=== PATIENT | female | born 1995 ===

== ENCOUNTER 2017-12-17 10:29 | Emergency (ER) | payer OTHER ==
[~2017-12-17] VITALS: Ht 172.7 cm; Wt 64.8 kg
[2017-12-17 10:33] VITALS: TEMP 36.5; Ht 172.7 cm; Wt 64.8 kg
[2017-12-17] MEDS ORDERED: ACETAMINOPHEN 500 MG TAB PO STA (11:11)
[2017-12-17] MEDS ORDERED: SODIUM CHLORIDE 0.9% 1000ML 1,000 ML IV STA (11:11)
[2017-12-17] MEDS ORDERED: ONDANSETRON INJ 2 MG/ML 2 ML VIAL IV STA (11:11)
[2017-12-17] MEDS ORDERED: KETOROLAC TROMETHAMINE 30 MG/ML VIAL IV STA (11:11)
[2017-12-17] MEDS ORDERED: GI COCKTAIL PO STA (11:11)
[2017-12-17] MEDS ORDERED: FAMOTIDINE 20 MG TAB PO ONE (11:15)
[2017-12-17 11:19] LABS: BASO % 0.4 %; BASO ABS # 0.03 K/uL (0-0.2); EOS % 3.5 %; EOS ABS # 0.25 K/uL (0-0.5); HEMOGLOBIN 13.5 g/dL (12.0-16.0); IG# 0.01 K/uL (0.00-0.02); LYMPH % 40.1 %; LYMPH ABS # 2.87 K/uL (1.2-3.4); MEAN CELL VOLUME 84.8 fL (80-100); MEAN CORPUSCULAR HEMOGLOBIN 29.3 pg (25-34); MEAN CORPUSCULAR HGB CONC 34.6 g/dl (32-36); MEAN PLATELET VOLUME 9.9 fL (7.4-10.4); MONO % 7.4 %; MONO ABS # 0.53 K/uL (0.11-0.59); NEUT % 48.5 %; NEUT ABS # 3.47 K/uL (1.4-6.5); PLATELET COUNT 222 K/uL (130-400); RED CELL DISTRIBUTION WIDTH CV 12.9 % (11.5-14.5); RED CELL DISTRIBUTION WIDTH SD 39.3 fL (36.4-46.3); WHITE BLOOD COUNT 7.16 K/uL (4.8-10.8)
[2017-12-17] MEDS ORDERED: LIDOCAINE HCL 2% VISC SOLN 20 ML UDC ONE (11:24)
[2017-12-17] MEDS ORDERED: ALUMINUM/MAGNESIUM SUSP 30 ML UDC ONE (11:24)
[2017-12-17 11:27] LABS: ALBUMIN 4.2 gm/dl (3.4-5.0); CALCIUM 8.9 mg/dl (8.5-10.1); CREATININE 0.96 mg/dl (0.60-1.20); POTASSIUM 3.5 mmol/L (3.5-5.1)
[2017-12-17 11:37] LABS: TOTAL PROTEIN 7.4 gm/dl (6.4-8.2)
[2017-12-17] MEDS ORDERED: ONDA4TAB65 PO (12:31)
--- NOTE | 2017-12-17 12:32 | EMERGENCY ROOM VISIT NOTE ---
History Report prepared by Froyibliam: Ramsey Chavira Under the Supervision of: Dr. Giancarlo Ibarra M.D. First contact with patient: 10:37 Chief Complaint: ABDOMINAL PAIN Stated Complaint: EXTREME STOMACH PAINS Nursing Triage Summary: Pt reports constant mid to left sided abd pain x 1 week, pain waxes/wanes. Nausea. Normal BM's. Denies urinary s/sx. Denies previous hx of similar pain. Denies back pain. History of Present Illness The patient is a 22 year old [place] female who presents to the ED with a cc of intermittent left sided abdominal pain beginning one week ago. Pain has now become constant. Positive nausea. Negative urinary symptoms, diarrhea, back pain. No history of similar pain. Bowel movements have been normal, most recent was last night. Pain improved with sitting up straight, or curling up into position. Traveled to [facility] a few months ago. LNMP was last week. No known sick contacts. No abnormal foods. No chance of . No alcohol, drugs, or tobacco use. Pain is unchanged with food. Source of History: patient Onset: One week ago Position: abdomen (left side) Timing: intermittent Modifying Factors (Relieving): other (sitting up straight, or curling up into position) Associated Symptoms: + nausea, No back pain, No diarrhea, No urinary symptoms Review of Systems See HPI for pertinent positives and negatives. A total of ten systems were reviewed and were otherwise negative. Past Medical & Surgical Medical Problems: (1) No Known Active Medical Problems Family History No pertinent family history stated. Social History Smoking Status: Never Smoker Alcohol Use: none Occupation Status: [employer] student Current/Historical Medications No Active Prescriptions or Reported Meds Allergies Coded Allergies: No Known Allergies (Unverified , 12/17/17) Physical Exam Vital Signs Date Time Temp Pulse Resp B/P (MAP) Pulse Ox O2 Delivery O2 Flow Rate FiO2 12/17/17 11:28 54 14 112/84 100 Room Air 12/17/17 10:33 36.5 70 18 117/64 97 Room Air Physical Exam GENERAL: Awake, alert, well-appearing, NAD. Wearing glasses. HENT: Normocephalic, atraumatic. EYES: Normal conjunctiva. Sclera non-icteric. NECK: Supple. No nuchal rigidity. FROM. RESPIRATORY: CTAB, no rhonchi, wheezing, crackles CARDIAC: RRR, no MRG ABDOMEN: Soft, BS+. Epigastric discomfort. Mild RUQ discomfort. Negative Brown' s. Negative obturators. Negative psoas. Non-surgical abdomen. MSK: No chest wall TTP, no LE edema NEURO: GCS 15, CN 2-12 intact, moves all 4s on command SKIN: No rash or jaundice noted. Medical Decision & Procedures Laboratory Results 12/17/17 10:54 Red Blood Count 4.60, Mean Corpuscular Volume 84.8, Mean Corpuscular Hemoglobin 29.3, Mean Corpuscular Hemoglobin Concent 34.6, Mean Platelet Volume 9.9, Neutrophils (%) (Auto) 48.5, Lymphocytes (%) (Auto) 40.1, Monocytes (%) (Auto) 7.4, Eosinophils (%) (Auto) 3.5, Basophils (%) (Auto) 0.4, Neutrophils # (Auto) 3.47, Lymphocytes # (Auto) 2.87, Monocytes # (Auto) 0.53, Eosinophils # (Auto) 0.25, Basophils # (Auto) 0.03 12/17/17 10:54 Test 12/17/17 10:54 12/17/17 11:17 White Blood Count 7.16 K/uL (4.8-10.8) Red Blood Count 4.60 M/uL (4.2-5.4) Hemoglobin 13.5 g/dL (12.0-16.0) Hematocrit 39.0 % (37-47) Mean Corpuscular Volume 84.8 fL (80-100) Mean Corpuscular Hemoglobin 29.3 pg (25-34) Mean Corpuscular Hemoglobin Concent 34.6 g/dl (32-36) Platelet Count 222 K/uL (130-400) Mean Platelet Volume 9.9 fL (7.4-10.4) Neutrophils (%) (Auto) 48.5 % Lymphocytes (%) (Auto) 40.1 % Monocytes (%) (Auto) 7.4 % Eosinophils (%) (Auto) 3.5 % Basophils (%) (Auto) 0.4 % Neutrophils # (Auto) 3.47 K/uL (1.4-6.5) Lymphocytes # (Auto) 2.87 K/uL (1.2-3.4) Monocytes # (Auto) 0.53 K/uL (0.11-0.59) Eosinophils # (Auto) 0.25 K/uL (0-0.5) Basophils # (Auto) 0.03 K/uL (0-0.2) RDW Standard Deviation 39.3 fL (36.4-46.3) RDW Coefficient of Variation 12.9 % (11.5-14.5) Immature Granulocyte % (Auto) 0.1 % Immature Granulocyte # (Auto) 0.01 K/uL (0.00-0.02) Anion Gap 6.0 mmol/L (3-11) Est Creatinine Clear Calc Drug Dose 94.3 ml/min Estimated GFR () 98.7 Estimated GFR (Non- 85.1 BUN/Creatinine Ratio 12.2 (10-20) Calcium Level 8.9 mg/dl (8.5-10.1) Total Bilirubin 0.9 mg/dl (0.2-1) Direct Bilirubin 0.2 mg/dl (0-0.2) Aspartate Amino Transf (AST/SGOT) 20 U/L (15-37) Alanine Aminotransferase (ALT/SGPT) 21 U/L (12-78) Alkaline Phosphatase 65 U/L (45-117) Total Protein 7.4 gm/dl (6.4-8.2) Albumin 4.2 gm/dl (3.4-5.0) Lipase 160 U/L (73-393) Urine Color YELLOW Urine Appearance CLEAR (CLEAR) Urine pH 6.5 (4.5-7.5) Urine Specific [place] 1.016 (1.000-1.030) Urine Protein NEG (NEG) Urine Glucose (UA) NEG (NEG) Urine Ketones NEG (NEG) Urine Occult Blood NEG (NEG) Urine Nitrite NEG (NEG) Urine Bilirubin NEG (NEG) Urine Urobilinogen NEG (NEG) Urine Leukocyte Esterase NEG (NEG) Urine Test NEG (NEG) Laboratory results reviewed by me Medications Administered Medications (Trade) Dose Ordered Sig/Surinder Route Start Time Stop Time Status Last Admin Dose Admin Sodium Chloride 1,000 ml @ 999 mls/hr Q1H1M STAT IV 12/17/17 11:11 12/17/17 12:11 DC 12/17/17 11:26 999 MLS/HR Ondansetron HCl (Zofran Inj) 4 mg NOW STAT IV 12/17/17 11:11 3/21/18 11:12 DC 12/17/17 11:26 4 MG Ketorolac Tromethamine (Toradol Inj) 30 mg NOW STAT IV 12/17/17 11:11 12/17/17 11:12 DC 12/17/17 11:27 30 MG Acetaminophen (Tylenol Tab) 1,000 mg NOW STAT PO 12/17/17 11:11 12/17/17 11:12 DC 12/17/17 11:28 1,000 MG Famotidine (Pepcid Tab) 20 mg NOW ONCE PO 12/17/17 11:15 12/17/17 11:16 DC 12/17/17 11:28 20 MG Lidocaine HCl (Viscous Lidocaine 2% Soln) 20 ml STK-MED ONCE .ROUTE 12/17/17 11:24 12/17/17 11:25 DC 12/17/17 11:27 20 ML Al Hydroxide/Mg Hydroxide (Maalox Susp) 30 ml STK-MED ONCE .ROUTE 12/17/17 11:24 12/17/17 11:25 DC 12/17/17 11:27 30 ML ED Course 1100: The patient was evaluated in room C5. A complete history and physical exam was performed. 1220: I reevaluated the patient. Discussed results and discharge instructions: she verbalized understanding and agreement. The patient is ready for discharge. Medical Decision The patient is a 22 year old [place] female who presents to the ED with a cc of intermittent left sided abdominal pain beginning one week ago. Differential diagnosis: Etiologies such as appendicitis, diverticulitis, PUD, biliary pathology, UTI, pancreatitis, obstruction, mesenteric ischemia, aortic pathology, infections, inflammatory bowel disease, renal colic, as well as others were entertained. Nursing notes reviewed. Ancillary studies and prior records reviewed. Patient was seen and evaluated at the bedside. Patient was complaining some mild initially intermittent and now constant epigastric discomfort. Patient does complain of nausea but without vomiting. She has had a recent last menstrual period. Patient denies any recent travel. She did travel to [facility] back in August. Patient denies any lower abdominal pain or any prior surgeries. Patient did have blood work completed and was given medications for symptom control. Patient's blood work is completely unremarkable. Patient has a normal white blood cell count. Normal kidney function. Normal LFTs and lipase. Patient has a negative urinalysis for blood or infection. Patient's urine patency tested negative. Patient was told of these findings. Upon reassessment the patient was feeling much improved. Patient was told to consider a bland diet and to advance her diet as tolerated. Patient was also told she may try taking Pepcid and other [id number]-[id number] medications. Patient was deemed suitable for outpatient follow-up and discharge at this time. Patient was given strict follow-up, discharge, and return precautions. All questions were answered. Patient was deemed suitable for outpatient follow-up at this time. Patient agreed with the plan of care and was safely discharged home. Medication Reconcilliation Current Medication List: was personally reviewed by me Blood Pressure Screening Patient's blood pressure: Normal blood pressure Blood pressure disposition: Did not require urgent referral Impression Primary Impression: Gastritis Additional Impression: Epigastric abdominal pain Scribe Attestation The scribe's documentation has been prepared under my direction and personally reviewed by me in its entirety. I confirm that the note above accurately reflects all work, treatment, procedures, and medical decision making performed by me. Departure Information Dispostion Home / Self-Care Prescriptions Ondansetron Hcl (ZOFRAN) 4 Mg Tab 1 TAB PO Q6H Y for Nausea, #10 TAB 1 Refill Prov: Giancarlo Ibarra M.D. 12/17/17 Referrals No Doctor, Assigned (PCP) [facility] Patient Instructions ED Gastritis, [facility] Additional Instructions Please return to the emergency department if you have worsening or recurrent symptoms not amenable to at-home treatment. Please call for a follow-up appointment with her primary care physician. Please take your medications as prescribed. If you have other concerns and/or complaints please feel free to also call your primary care physician's office or return the ED for further evaluation, management, and treatment. You may take 600 mg Ibuprofen every 6 hours as needed for pain with food for no more than 2 consecutive days. You may take tylenol 1000 mg every 6 hours as needed for pain. You may take motrin and tylenol separately or at the same time. Consider taking Pepcid 20 mg twice daily. You may also consider other over-the- counter medications to help with your discomfort. You have been examined and treated today on an emergency basis only. This is not a substitute for, or an effort to provide, complete comprehensive medical care. It is impossible to recognize and treat all injuries or illnesses in a single emergency department visit. It is therefore important that you follow up closely with [facility], your PCP, and/or your specialist(s). Call as soon as possible for an appointment. Thank you for your time and consideration. I look forward to speaking with you again soon. Please don't hesitate to call us if you have any questions. Problem Qualifiers Primary Impression: Gastritis Gastritis type: unspecified gastritis Chronicity: unspecified Gastritis bleeding: presence of bleeding unspecified Qualified Codes: K29.70 - Gastritis, unspecified, without bleeding
[2017-12-17 12:42] VITALS: BP 109/54; PULSE 58; O2SAT 94
== END 2017-12-17 12:44 | disposition home or self-care (01) ==
LOC: C.EDB 10:31 → C.EDC 12:44
DX: K29.70 Gastritis, unspecified, without bleeding (principal); R10.13 Epigastric pain

== ENCOUNTER 2018-01-18 18:40 | Emergency (ER) | payer OTHER ==
[~2018-01-18] VITALS: Ht 172.7 cm; Wt 64.6 kg
[~2018-01-18 18:40] MED LIST: ONDA4TAB65 PO
[2018-01-18 18:42] VITALS: TEMP 37; Ht 172.7 cm; Wt 64.6 kg
[2018-01-18] MEDS ORDERED: SODIUM CHLORIDE 0.9% 1000ML 1,000 ML IV STA (19:03)
[2018-01-18] MEDS ORDERED: KETOROLAC TROMETHAMINE 30 MG/ML VIAL IV STA (19:05)
--- NOTE | 2018-01-18 19:23 | EMERGENCY ROOM VISIT NOTE ---
ED Visit Note First contact with patient: 18:47 CHIEF COMPLAINT: Sore throat HISTORY OF PRESENTING ILLNESS: This is a 22-year-old female who presents to the emergency department with complaint of sore throat past 2 weeks. She states that this has been getting worse over the past few days. She states that the pain has been constant, aching and sharp, worse with eating and drinking, better with rest, 8/10. She tried Tylenol a few days ago and has been using cough drops, but she states this is not helping. She has not taken any medications for the pain today. Yesterday she noticed a painful lump on the left side of her neck that has been becoming worse today. She has had some associated chills, but denies any fevers. Denies any voice changes. She has had some associated headaches and nausea off and on. She denies any difficulty swallowing, difficulty breathing, wheezing, chest pain, dizziness or syncope, abdominal pain, nausea or vomiting, diarrhea, urinary symptoms, or unusual rash. She denies any known sick contacts. REVIEW OF SYSTEMS: A complete 10 point review of systems was reviewed with the patient with pertinent positives and negatives as per history of present illness. All else were negative. PAST MEDICAL HISTORY: No significant past medical or surgical history. Up-to- date on immunizations. SOCIAL HISTORY: Lives at home. She is a [employer] student. She denies tobacco use. ALLERGIES: No known allergies. PHYSICAL EXAM: CONSTITUTIONAL: Pleasant and cooperative. No acute distress. Moderately dehydrated, otherwise well appearing and well nourished. HEENT: Normocephalic, atraumatic. Pupils equal, round and reactive to light, EOMI. TMs normal. Pharynx mildly erythematous and edematous, no exudate. No trismus, no uvular deviation. Moist mucous membranes. NECK: Supple, full active range of motion without discomfort. Bilateral anterior cervical adenopathy, left greater than right, tender to palpation. No posterior cervical adenopathy. RESPIRATORY: Clear to auscultation bilaterally with no wheezing, crackles, rhonchi or stridor. Equal expansion bilaterally. CARDIOVASCULAR: Regular rate and rhythm with no murmurs, rubs or gallops. Normal peripheral perfusion. No edema. GASTROINTESTINAL: Soft, nontender, nondistended. No palpable masses or HSM. Bowel sounds present in all quadrants. MUSCULOSKELETAL: Full range of motion of all joints without discomfort. INTEGUMENTARY: No rash or other significant dermatologic conditions noted. NEUROLOGIC: Alert and oriented X 4 with normal affect. Cranial nerves II-XII grossly intact. No focal neurologic deficits noted. Normal strength and sensation in all 4 extremities. Normal speech. Normal gait observed. ED COURSE AND MEDICAL DECISION MAKING: CC: Patient presenting with complaint of sore throat. DIFFERENTIAL DIAGNOSIS: Includes, but not limited to viral pharyngitis, strep pharyngitis, mononucleosis, dehydration, electrolyte abnormalities, peritonsillar abscess, lymphadenopathy, among others. INTERPRETATION OF LABS: Leukocytosis with left shift, no anemia, no significant electrolyte abnormalities, normal renal function. Monospot negative. Rapid strep positive. MEDICATION RECONCILIATION: I attest that I have personally reviewed the patient 's current medication list. INITIAL VITAL SIGNS REVIEW: I reviewed the patient's initial vital signs and interpret them as follows: T: Afebrile; BP: Normotensive; HR: Tachycardic; RR : Within normal limits; Pulse Ox: Within normal limits on room air. Blood pressure screening: The patient was found to have normal blood pressure on screening and does not require follow-up for repeat blood pressure check. SUMMARY: Patient was evaluated at bedside, history and physical exam performed. Patient is alert and oriented, no acute distress, resting, and stretcher. Patient appears moderately dehydrated and is noted to be tachycardic with heart rate in the 120s. She is afebrile. She has mild erythema and edema of the pharynx, but no exudates. No trismus or uvular deviation, I have a low clinical suspicion for peritonsillar abscess. Orders were placed at bedside for labs, rapid strep and Monospot, IV fluids for hydration, IV Toradol for pain. Patient discussed with Dr. García, who agrees with my assessment and plan. Labs reviewed as above, rapid strep POSITIVE. Patient was treated with amoxicillin, first dose in the ED and Rx sent to the pharmacy. Patient reassessed multiple times throughout ED stay, she is feeling better after fluids and Toradol, and she states that her pain is much improved. Her tachycardia is downtrending. She is tolerating oral fluids without difficulty. Patient was updated on all results and plan for discharge, she was encouraged to follow closely with her primary care provider or [facility]. Patient was also given strict return precautions should her symptoms worsen, she verbalized understanding. Patient was discharged home in stable condition and ambulatory. Current/Historical Medications Scheduled Amoxicillin (Amoxil), 500 MG PO BID Scheduled PRN Ondansetron Hcl (Zofran), 1 TAB PO Q6H PRN for Nausea Allergies Coded Allergies: No Known Allergies (Unverified , 12/17/17) Vital Signs Date Time Temp Pulse Resp B/P (MAP) Pulse Ox O2 Delivery O2 Flow Rate FiO2 01/18/18 20:33 111 111/70 98 Room Air 01/18/18 19:24 98 Room Air 01/18/18 18:42 37.0 122 18 119/76 97 Room Air Laboratory Results 01/18/18 19:15 Red Blood Count 4.72, Mean Corpuscular Volume 84.1, Mean Corpuscular Hemoglobin 29.2, Mean Corpuscular Hemoglobin Concent 34.8, Mean Platelet Volume 9.3, Neutrophils (%) (Auto) 84.7, Lymphocytes (%) (Auto) 7.4, Monocytes (%) (Auto) 6.3, Eosinophils (%) (Auto) 1.0, Basophils (%) (Auto) 0.2, Neutrophils # (Auto) 11.29, Lymphocytes # (Auto) 0.99, Monocytes # (Auto) 0.84, Eosinophils # (Auto) 0.13, Basophils # (Auto) 0.02 01/18/18 19:15 Test 01/18/18 19:15 White Blood Count 13.32 K/uL (4.8-10.8) Red Blood Count 4.72 M/uL (4.2-5.4) Hemoglobin 13.8 g/dL (12.0-16.0) Hematocrit 39.7 % (37-47) Mean Corpuscular Volume 84.1 fL (80-100) Mean Corpuscular Hemoglobin 29.2 pg (25-34) Mean Corpuscular Hemoglobin Concent 34.8 g/dl (32-36) Platelet Count 245 K/uL (130-400) Mean Platelet Volume 9.3 fL (7.4-10.4) Neutrophils (%) (Auto) 84.7 % Lymphocytes (%) (Auto) 7.4 % Monocytes (%) (Auto) 6.3 % Eosinophils (%) (Auto) 1.0 % Basophils (%) (Auto) 0.2 % Neutrophils # (Auto) 11.29 K/uL (1.4-6.5) Lymphocytes # (Auto) 0.99 K/uL (1.2-3.4) Monocytes # (Auto) 0.84 K/uL (0.11-0.59) Eosinophils # (Auto) 0.13 K/uL (0-0.5) Basophils # (Auto) 0.02 K/uL (0-0.2) RDW Standard Deviation 38.1 fL (36.4-46.3) RDW Coefficient of Variation 12.4 % (11.5-14.5) Immature Granulocyte % (Auto) 0.4 % Immature Granulocyte # (Auto) 0.05 K/uL (0.00-0.02) Anion Gap 9.0 mmol/L (3-11) Est Creatinine Clear Calc Drug Dose 95.3 ml/min Estimated GFR () 99.9 Estimated GFR (Non- 86.2 BUN/Creatinine Ratio 11.6 (10-20) Calcium Level 8.6 mg/dl (8.5-10.1) Monoscreen NEG (NEG) Date/Time Source Procedure Growth Status 01/18/18 19:00 Throat Group A Streptococcus Screen - Final SPECIMEN POSITIVE FOR GROUP A BETA ST... Complete 01/18/18 19:00 Throat Group A Streptococcus Screen (ROBBIE) - Final Complete Medications Administered Medications (Trade) Dose Ordered Sig/Surinder Route Start Time Stop Time Status Last Admin Dose Admin Sodium Chloride 1,000 ml @ 999 mls/hr Q1H1M STAT IV 01/18/18 19:03 01/18/18 20:03 DC 01/18/18 19:03 999 MLS/HR Ketorolac Tromethamine (Toradol Inj) 15 mg NOW STAT IV 01/18/18 19:05 01/18/18 19:06 DC 01/18/18 19:22 15 MG Amoxicillin (Amoxil Cap) 500 mg NOW STAT PO 01/18/18 19:54 01/18/18 19:56 DC 01/18/18 20:33 500 MG Departure Information Impression Primary Impression: Strep pharyngitis Dispostion Home / Self-Care Condition GOOD Prescriptions Amoxicillin (AMOXIL) 500 Mg Cap 500 MG PO BID for 10 Days, #19 CAP Prov: Paige Esqueda CRNP 01/18/18 Referrals No Doctor, Assigned (PCP) [facility] Patient Instructions ED Strep Pharyngitis Yelena Reyez [facility] Additional Instructions You were seen in the emergency department for your sore throat. The results of your rapid strep screen were found to be POSITIVE. You were prescribed amoxicillin to be taken twice a day for 10 days. This is an antibiotic to treat your strep throat infection. All antibiotics have the potential to cause diarrhea, take a daily probiotic or eat yogurt regularly to help avoid this. Stop this medication and contact a medical provider if you were to develop any significant adverse side effects including: wheezing, shortness of breath, passing out, vomiting, or a diffuse rash. Always take antibiotics as directed and COMPLETE the ENTIRE course regardless of the improvement of your symptoms. For pain and fever control, you can use the following [id number] medicines (if >12 yo): - Regular strength (325mg/tab) Tylenol (acetaminophen) 2 tabs every 4-6 hours as needed. Do not exceed 10 tablets in a 24 hour period. Avoid taking more than 3000 mg of Tylenol per day. This includes any other sources of acetaminophen you may take on a regular basis. - Regular strength (200 mg/tab) Advil (ibuprofen) 3 tabs every 6-8 hours as needed. Do not exceed a dose of 2400 mg per day. - For best results, alternate dosing of Tylenol and Advil every 3-4 hours. In addition to your prescribed medications, you can also use the following home remedies: - Warm salt-water gargles 3 times per day can soothe your throat and help to fight infection. - Warm tea with honey can soothe your throat. [id number]-[id number] Chloraseptic sprays and Cepacol lozenges may also help with your throat pain. Lukewarm fluids are better than very hot or very cold liquids for soothing your throat. Drink plenty of fluids to stay well hydrated. Return to the emergency department if your symptoms persist or worsen over the next 2-3 days despite treatment course outlined above. Return to the emergency department if you develop the following symptoms of: inability to swallow solids , liquids, or drool; excessive wheezing or inability to catch your breath; persistent high fever or severe worsening pain, or any other concerns. Follow up with your primary care provider or [facility] in 2-3 days from today's emergency department visit.
[2018-01-18 19:27] LABS: BASO % 0.2 %; BASO ABS # 0.02 K/uL (0-0.2); EOS ABS # 0.13 K/uL (0-0.5); HEMATOCRIT 39.7 % (37-47); HEMOGLOBIN 13.8 g/dL (12.0-16.0); IG# 0.05 K/uL (0.00-0.02); LYMPH % 7.4 %; LYMPH ABS # 0.99 K/uL (1.2-3.4); MEAN CELL VOLUME 84.1 fL (80-100); MEAN CORPUSCULAR HEMOGLOBIN 29.2 pg (25-34); MEAN CORPUSCULAR HGB CONC 34.8 g/dl (32-36); MEAN PLATELET VOLUME 9.3 fL (7.4-10.4); MONO % 6.3 %; MONO ABS # 0.84 K/uL (0.11-0.59); NEUT % 84.7 %; NEUT ABS # 11.29 K/uL (1.4-6.5); PLATELET COUNT 245 K/uL (130-400); RED CELL DISTRIBUTION WIDTH CV 12.4 % (11.5-14.5); RED CELL DISTRIBUTION WIDTH SD 38.1 fL (36.4-46.3); WHITE BLOOD COUNT 13.32 K/uL (4.8-10.8)
[2018-01-18 19:44] LABS: CALCIUM 8.6 mg/dl (8.5-10.1); CREATININE 0.95 mg/dl (0.60-1.20); POTASSIUM 3.4 mmol/L (3.5-5.1)
[2018-01-18] MEDS ORDERED: AMOXICILLIN 250 MG CAP PO STA (19:54)
[2018-01-18 20:33] VITALS: BP 111/70; PULSE 111; O2SAT 98
[2018-01-18] MEDS ORDERED: AMOX500C3 PO (20:48)
== END 2018-01-18 21:10 | disposition home or self-care (01) ==
LOC: C.EDB 18:41 → C.EDA 21:10
DX: J02.0 Streptococcal pharyngitis (principal)